=== PATIENT | male | born 1970 | race Asian ===

== ENCOUNTER 2019-07-10 13:01 | Emergency (ER) | payer SELFPAY ==
[~2019-07-10] VITALS: Ht 162.6 cm; Wt 65.0 kg
[2019-07-10] MEDS ORDERED: LORAZEPAM 0.5MG TABLET PO ONE (14:00)
[2019-07-10] MEDS ORDERED: ACETAMINOPHEN 500MG TABLET PO ONE (14:00)
[2019-07-10 17:13] VITALS: BP 137/95
== END 2019-07-10 17:15 | disposition home or self-care (01) ==
LOC: ER 13:01
DX: M54.5 Low back pain (principal); S09.90XA Unspecified injury of head, initial encounter; I10 Essential (primary) hypertension; V49.40XA Driver injured in collision with unspecified motor vehicles in traffic accident, initial encounter; Y93.89 Activity, other specified; Y92.410 Unspecified street and highway as the place of occurrence of the external cause
CPT/HCPCS: 71045; 93005; 99283